=== PATIENT | male | born 1955 | race Caucasian/White ===

== ENCOUNTER → 2017-05-04 | Outpatient (CLI) | payer OTHER ==
[2013-05-06 14:47] VITALS: BP 124/73
[~2017-05-04] MED LIST: AMITRIPTYLINE50 MG PO; KETOROLAC10 MG PO; NORCO 325 MG-51 TAB PO; PROMETHAZINE12.5 M5 PO; SKELAXIN400 MG PO
== END ==
LOC: LAB 09:41
DX: Z80.3 Family history of malignant neoplasm of breast (principal)

== ENCOUNTER → 2018-07-02 | Outpatient (CLI) | payer OTHER ==
[2013-05-06 14:47] VITALS: BP 124/73
== END ==
LOC: RAD 06:36
DX: M48.061 Spinal stenosis, lumbar region without neurogenic claudication (principal); M51.36 Other intervertebral disc degeneration, lumbar region

== ENCOUNTER → 2018-07-29 | Outpatient (CLI) | payer OTHER ==
[2013-05-06 14:47] VITALS: BP 124/73
[2018-07-29 12:53] LABS: HEMOGLOBIN 14.4 g/dL (13.5-18.0); MEAN CELL VOLUME 86 fl (78-100); MEAN CORPUSCULAR HEMOGLOBIN 28 pg (27-31); MEAN CORPUSCULAR HGB CONC 33 g/dL (33-37); MEAN PLATELET VOLUME 10.3 fl (7.4-10.4); PLATELET COUNT 234 K/mm3 (130-400); RED BLOOD COUNT 5.11 M/mm3 (4.20-5.60); RED CELL DISTRIBUTION WIDTH 13.9 % (11.5-14.5); WHITE BLOOD COUNT 6.4 K/mm3 (4.8-10.8)
[2018-07-29 12:54] LABS: ALBUMIN 4.4 g/dL (3.5-5.0); CALCIUM 9.7 mg/dL (8.4-10.2); POTASSIUM 5.1 mmol/L (3.6-5.0); TOTAL BILIRUBIN 0.7 mg/dL (0.2-1.3); TOTAL PROTEIN 7.3 g/dL (6.3-8.2)
[2018-07-29 13:27] LABS: LYMPHOCYTE 9 % (20-51); MONOCYTE 2 % (3-10); NEUTROPHILS 89 % (42-75)
== END ==
LOC: LAB 12:18
PROVIDERS: Physician Assistant
DX: R60.0 Localized edema (principal)

== ENCOUNTER → 2020-05-18 | Outpatient (CLI) | payer OTHER ==
[2013-05-06 14:47] VITALS: BP 124/73
[2020-05-18 08:27] LABS: EOS # 0.1 (0.04-0.40); EOS % 1.8 % (0.0-4.0); HEMATOCRIT 44.8 % (42.0-52.0); HEMOGLOBIN 14.3 g/dL (13.5-18.0); LYMPH# 0.9 (1.50-4.00); MEAN CELL VOLUME 89 fl (78-100); MEAN CORPUSCULAR HEMOGLOBIN 28 pg (27-31); MEAN CORPUSCULAR HGB CONC 32 g/dL (33-37); MEAN PLATELET VOLUME 9.5 fl (7.4-10.4); MONO # 0.6 (0.20-0.80); NEU # 3.4 (1.40-6.50); PLATELET COUNT 288 K/mm3 (130-400); RED BLOOD COUNT 5.06 M/mm3 (4.20-5.60); RED CELL DISTRIBUTION WIDTH 13.8 % (11.5-14.5); WHITE BLOOD COUNT 5.1 K/mm3 (4.8-10.8)
[2020-05-18 09:20] LABS: POTASSIUM 4.5 mmol/L (3.5-5.1)
[2020-05-18 09:21] LABS: CALCIUM 9.1 mg/dL (8.3-10.5)
[2020-05-18 09:22] LABS: TOTAL PROTEIN 6.6 g/dL (6.2-8.1)
[2020-05-18 09:24] LABS: TOTAL BILIRUBIN 0.7 mg/dL (0.2-1.2)
== END ==
LOC: LAB 08:12
PROVIDERS: Physician Assistant
DX: Z12.5 Encounter for screening for malignant neoplasm of prostate (principal); G25.0 Essential tremor; M54.41 Lumbago with sciatica, right side; E78.5 Hyperlipidemia, unspecified; K21.9 Gastro-esophageal reflux disease without esophagitis; K22.70 Barrett's esophagus without dysplasia; L71.8 Other rosacea; R79.89 Other specified abnormal findings of blood chemistry

== ENCOUNTER → 2020-05-23 | Outpatient (CLI) | payer OTHER ==
[2013-05-06 14:47] VITALS: BP 124/73
[2020-05-23 12:40] LABS: HEMATOCRIT 43.5 % (42.0-52.0); HEMOGLOBIN 14.5 g/dL (13.5-18.0); MEAN CELL VOLUME 86 fl (78-100); MEAN CORPUSCULAR HEMOGLOBIN 29 pg (27-31); MEAN CORPUSCULAR HGB CONC 33 g/dL (33-37); MEAN PLATELET VOLUME 9.4 fl (7.4-10.4); PLATELET COUNT 224 K/mm3 (130-400); RED BLOOD COUNT 5.04 M/mm3 (4.20-5.60); RED CELL DISTRIBUTION WIDTH 13.9 % (11.5-14.5); WHITE BLOOD COUNT 8.7 K/mm3 (4.8-10.8)
[2020-05-23 12:43] LABS: ALBUMIN 4.1 g/dL (3.4-4.8); POTASSIUM 3.9 mmol/L (3.5-5.1)
[2020-05-23 12:45] LABS: CALCIUM 8.9 mg/dL (8.3-10.5)
[2020-05-23 12:46] LABS: TOTAL PROTEIN 6.8 g/dL (6.2-8.1)
[2020-05-23 12:48] LABS: TOTAL BILIRUBIN 1.4 mg/dL (0.2-1.2)
[2020-05-23 12:49] LABS: URINE APPEARANCE CLOUDY; URINE BILIRUBIN NEGATIVE (NEGATIVE); URINE BLOOD 50 ery/uL (NEGATIVE); URINE COLOR YELLOW; URINE GLUCOSE NEGATIVE (NEGATIVE); URINE KETONE NEGATIVE (NEGATIVE); URINE LEUKOCYTE ESTERASE 2+ (NEGATIVE); URINE NITRATE POSITIVE (NEGATIVE); URINE PROTEIN(semi-quant) TRACE mg/dL (NEGATIVE); URINE UROBILINOGEN NORMAL (NORMAL); URINE WBC >50 /hpf (0-3)
[2020-05-23 12:53] LABS: LYMPHOCYTE 4 % (20-51); MONOCYTE 7 % (3-10); NEUTROPHILS 89 % (42-75)
== END ==
LOC: LAB 12:24
PROVIDERS: Nurse Practitioner
DX: R50.9 Fever, unspecified (principal)

== ENCOUNTER → 2020-08-30 | Outpatient (CLI) | payer OTHER ==
[2013-05-06 14:47] VITALS: BP 124/73
[2020-08-30 15:15] LABS: POTASSIUM 4.4 mmol/L (3.5-5.1)
[2020-08-30 15:16] LABS: BASO # 0.1 (0.02-0.10); EOS # 0.2 (0.04-0.40); EOS % 2.9 % (0.0-4.0); HEMOGLOBIN 14.1 g/dL (13.5-18.0); MEAN CELL VOLUME 89 fl (78-100); MEAN CORPUSCULAR HEMOGLOBIN 28 pg (27-31); MEAN CORPUSCULAR HGB CONC 32 g/dL (33-37); MEAN PLATELET VOLUME 10.1 fl (7.4-10.4); MONO # 0.6 (0.20-0.80); NEU # 3.6 (1.40-6.50); PLATELET COUNT 248 K/mm3 (130-400); RED BLOOD COUNT 4.97 M/mm3 (4.20-5.60); RED CELL DISTRIBUTION WIDTH 13.5 % (11.5-14.5); WHITE BLOOD COUNT 5.4 K/mm3 (4.8-10.8)
[2020-08-30 15:18] LABS: TOTAL PROTEIN 6.7 g/dL (6.2-8.1)
[2020-08-30 15:19] LABS: TOTAL BILIRUBIN 0.8 mg/dL (0.2-1.2)
== END ==
LOC: LAB 14:47
PROVIDERS: Physician Assistant
DX: R53.83 Other fatigue (principal); R79.89 Other specified abnormal findings of blood chemistry

== ENCOUNTER → 2021-08-09 | Outpatient (CLI) | payer MEDICARE, OTHER | LOC: LAB 16:15 | DX: R79.89 Other specified abnormal findings of blood chemistry (principal) ==

== ENCOUNTER → 2021-08-15 | Outpatient (CLI) | payer MEDICARE, OTHER | LOC: RAD 08:45 | DX: R59.0 Localized enlarged lymph nodes (principal) ==

== ENCOUNTER 2022-04-20 18:34 | Observation (INO) | payer MEDICARE, OTHER ==
[~2022-04-20] VITALS: Ht 175.3 cm; Wt 76.4 kg
[2022-04-20 18:59] LABS: BASO # 0.04 K/mm3 (0.02-0.10); EOS # 0.11 K/mm3 (0.04-0.40); EOS % 1.3 % (0.0-4.0); HEMOGLOBIN 14.8 g/dL (13.5-18.0); LYMPH# 0.94 K/mm3 (1.50-4.00); MEAN CELL VOLUME 89 fl (78-100); MEAN CORPUSCULAR HEMOGLOBIN 29 pg (27-31); MEAN CORPUSCULAR HGB CONC 32 g/dL (33-37); MEAN PLATELET VOLUME 9.9 fl (7.4-10.4); MONO # 0.73 K/mm3 (0.20-0.80); NEU # 6.84 K/mm3 (1.40-6.50); PLATELET COUNT 303 K/mm3 (130-400); RED BLOOD COUNT 5.18 M/mm3 (4.20-5.60); RED CELL DISTRIBUTION WIDTH 13.1 % (11.5-14.5); WHITE BLOOD COUNT 8.7 K/mm3 (4.8-10.8)
[2022-04-20] MEDS ORDERED: FEXOFENADINE HY60 MG PO (19:05)
[2022-04-20] MEDS ORDERED: AMITRIPTYLINE H25 M2 PO (19:06)
[2022-04-20] MEDS ORDERED: BACTRIM DS TAB1 EACH PO (19:07)
[2022-04-20] MEDS ORDERED: BENZONATATE200 MG PO (19:08)
[2022-04-20 19:09] LABS: ALBUMIN 4.5 g/dL (3.4-4.8); POTASSIUM 4.7 mmol/L (3.5-5.1)
[2022-04-20] MEDS ORDERED: CLOBETASOL PROP25 ML (19:09)
[2022-04-20] MEDS ORDERED: BP WASH (19:09)
[2022-04-20 19:10] LABS: CALCIUM 9.8 mg/dL (8.3-10.5)
[2022-04-20] MEDS ORDERED: NEXIUM20 MG PO (19:10)
[2022-04-20] MEDS ORDERED: CYCLOBENZAPRINE10 M1 PO (19:10)
[2022-04-20 19:11] LABS: TOTAL PROTEIN 7.5 g/dL (6.2-8.1)
[2022-04-20] MEDS ORDERED: FORTESTA10 MG/0.5 (19:11)
[2022-04-20] MEDS ORDERED: NEURONTIN300 M1 PO (19:11)
[2022-04-20] MEDS ORDERED: VIAGRA100 M1 PO (19:12)
[2022-04-20 19:13] LABS: TOTAL BILIRUBIN 0.5 mg/dL (0.2-1.2)
[2022-04-20 20:19] LABS: LIPASE 12 U/L (8-78)
[2022-04-20 22:20] LABS: URINE APPEARANCE CLEAR; URINE COLOR DARK YELLOW
[2022-04-20 22:21] LABS: URINE BILIRUBIN NEGATIVE (NEGATIVE); URINE BLOOD NEGATIVE (NEGATIVE); URINE GLUCOSE NEGATIVE (NEGATIVE); URINE KETONE NEGATIVE (NEGATIVE); URINE LEUKOCYTE ESTERASE NEGATIVE (NEGATIVE); URINE NITRATE NEGATIVE (NEGATIVE); URINE PROTEIN(semi-quant) NEGATIVE (NEGATIVE); URINE UROBILINOGEN NORMAL (NORMAL); URINE WBC 0-1 /hpf (0-3)
[2022-04-21 00:03] VITALS: BP 123/75
[2022-04-21 05:43] VITALS: BP 126/82
[2022-04-21 07:03] LABS: HEMATOCRIT 42.4 % (42.0-52.0); HEMOGLOBIN 13.5 g/dL (13.5-18.0); MEAN PLATELET VOLUME 9.5 fl (7.4-10.4); RED BLOOD COUNT 4.76 M/mm3 (4.20-5.60); RED CELL DISTRIBUTION WIDTH 13.1 % (11.5-14.5); WHITE BLOOD COUNT 7.1 K/mm3 (4.8-10.8)
[2022-04-21 07:19] LABS: POTASSIUM 4.4 mmol/L (3.5-5.1)
[2022-04-21 07:20] LABS: CALCIUM 8.4 mg/dL (8.3-10.5)
[2022-04-21 10:17] VITALS: BP 130/77
[2022-04-21 14:08] VITALS: BP 121/62
[2022-04-21] MEDS ORDERED: MORPHINE S10 MG/0.5 IV (14:08)
[2022-04-21] MEDS ORDERED: PROPRANOLOL HY120 MG PO (14:08)
[2022-04-21] MEDS ORDERED: NEURONTIN300 MG/CAP PO (14:09)
[2022-04-21] MEDS ORDERED: AMITRIPTYLINE H25 M2 PO (14:09)
== END 2022-04-21 14:50 | disposition short-term general hospital (02) ==
LOC: ED 18:34 → MED/SURG 22:23
PROVIDERS: ADMIT Family Medicine
DX: R10.9 Unspecified abdominal pain (principal)
CPT/HCPCS: G0378; J1885; J2060; J2270; J3010; J7030; Q9967

== ENCOUNTER → 2022-07-24 | Outpatient (CLI) | payer MEDICARE, OTHER ==
[~2022-07-24] MED LIST changes: +AMITRIPTYLINE H25 M2 PO; +BACTRIM DS TAB1 EACH PO; +BENZONATATE200 MG PO; +BP WASH; +CLOBETASOL PROP25 ML; +CYCLOBENZAPRINE10 M1 PO; +FEXOFENADINE HY60 MG PO; +FORTESTA10 MG/0.5; +MORPHINE S10 MG/0.5 IV; +NEURONTIN300 M1 PO; +NEURONTIN300 MG/CAP PO; +NEXIUM20 MG PO; +PROPRANOLOL HY120 MG PO; +VIAGRA100 M1 PO
== END ==
LOC: LAB 08:15
DX: Z00.00 Encounter for general adult medical examination without abnormal findings (principal); G47.33 Obstructive sleep apnea (adult) (pediatric); E78.5 Hyperlipidemia, unspecified; K21.9 Gastro-esophageal reflux disease without esophagitis; F51.04 Psychophysiologic insomnia; F52.21 Male erectile disorder; I10 Essential (primary) hypertension; M54.50 Low back pain, unspecified; R79.89 Other specified abnormal findings of blood chemistry; R59.0 Localized enlarged lymph nodes

== ENCOUNTER → 2024-09-02 | Outpatient (CLI) | payer MEDICARE, OTHER | LOC: LAB 08:47 | DX: Z12.5 Encounter for screening for malignant neoplasm of prostate (principal); E29.1 Testicular hypofunction ==